=== PATIENT | female | born 1985 | race Caucasian/White ===

== ENCOUNTER → 2023-09-08 09:50 | Outpatient (REF) | payer BC, SELFPAY | LOC: RAD 09:50 | PROVIDERS: ATTENDING PHYSICIAN Physician Assistant Medical | DX: R06.02 Shortness of breath (principal) | CPT/HCPCS: 71046 ==

== ENCOUNTER → 2023-09-10 13:17 | Outpatient (REF) | payer BC, SELFPAY | LOC: MRI 3T 13:17 | PROVIDERS: ATTENDING PHYSICIAN Physician Assistant Medical | DX: G44.52 New daily persistent headache (NDPH) (principal) | CPT/HCPCS: 70551 ==

== ENCOUNTER → 2023-12-30 14:54 | Outpatient (REF) | payer BC, SELFPAY | LOC: RAD 14:54 | PROVIDERS: ATTENDING PHYSICIAN Obstetrics & Gynecology; FAMILY PHYSICIAN Physician Assistant Medical | DX: O26.851 Spotting complicating pregnancy, first trimester (principal) | CPT/HCPCS: 76801; 76817 ==

== ENCOUNTER → 2024-01-09 10:05 | Outpatient (REF) | payer BC, SELFPAY | LOC: PNTC 10:05 | PROVIDERS: ATTENDING PHYSICIAN Obstetrics & Gynecology | DX: O36.80X0 Pregnancy with inconclusive fetal viability, not applicable or unspecified (principal) | CPT/HCPCS: 76801; 76817 ==

== ENCOUNTER → 2024-01-13 13:23 | Outpatient (REF) | payer BC, SELFPAY | LOC: RAD 13:23 | PROVIDERS: ATTENDING PHYSICIAN Obstetrics & Gynecology; FAMILY PHYSICIAN Physician Assistant Medical | DX: O26.859 Spotting complicating pregnancy, unspecified trimester (principal) | CPT/HCPCS: 76801 ==

== ENCOUNTER → 2024-02-06 13:24 | Outpatient (REF) | payer BC, SELFPAY | LOC: RAD 13:24 | PROVIDERS: ATTENDING PHYSICIAN Obstetrics & Gynecology; FAMILY PHYSICIAN Family Medicine | DX: O26.851 Spotting complicating pregnancy, first trimester (principal) | CPT/HCPCS: 76801 ==

== ENCOUNTER → 2024-02-16 10:18 | Outpatient (REF) | payer BC, SELFPAY | LOC: PNTC 10:18 | PROVIDERS: ATTENDING PHYSICIAN Obstetrics & Gynecology | DX: Z36.0 Encounter for antenatal screening for chromosomal anomalies (principal); Z36.82 Encounter for antenatal screening for nuchal translucency | CPT/HCPCS: 76801; 76813 ==

== ENCOUNTER 2024-08-17 15:52 | Inpatient (IN) | payer BC, SELFPAY ==
[2024-08-17 16:21] VITALS: BP 122/57; BMI 30.9
[2024-08-17] MEDS: PITOCIN 30 UNITS/NSS 500 ML IV (17:58)
[2024-08-17] MEDS: LR 1000 IV (17:59)
[2024-08-17 18:03] LABS: % Basophils 0.2 % (0-2); % Eosinophils 0.7 % (0-6); % Immature Granulocytes 0.7 % (0-0.5); % Monocytes 7.5 % (1.7-9.3); % Neutrophils 64.9 % (42.2-75.2); Absolute Eosinophils 0.1 10^3/uL (0-0.7); Absolute Immature Granulocytes 0.1 10^3/uL (0-0.05); Absolute Lymphocytes 2.5 10^3/uL (1.2-3.4); Absolute Monocytes 0.7 10^3/uL (0.1-0.6); Absolute Neutrophils 6.2 10^3/uL (1.4-6.5); Hematocrit 33.7 % (37.0-47.0); Hemoglobin 11.5 g/dL (12.0-16.0); Mean Corp Hgb Conc. 34.1 g/dL (33.0-37.0); Mean Corpuscular Hgb 30.7 pg (27.0-31.0); Mean Corpuscular Volume 90.1 fL (81.0-99.0); Nucleated Red Blood Cells % 0 %; Platelet Count 232 10^3/uL (130-400); Red Blood Cell Count 3.74 10^6/uL (4.20-5.40); Red Cell Dist. Width 12.7 % (11.5-14.5); White Blood Cell Count 9.6 10^3/uL (4.8-10.8)
[2024-08-17] MEDS: FENTANYL/BUPIVACAINE 100 EPIDURAL (20:31)
[2024-08-17] MEDS: SUBLIMAZE 100 MCG EPIDURAL (20:31)
[2024-08-17] MEDS: TUMS CHEWABLE TABLET 400 MG PO (21:27)
[2024-08-17] MEDS: MAALOX 30 ML PO (23:21)
[2024-08-17] MEDS: PEPCID 40 MG PO (23:21)
[2024-08-18] MEDS: MOTRIN 600 MG PO ×3 (05:55→20:43)
[2024-08-18] MEDS: TYLENOL 650 MG PO ×3 (05:55→16:41)
[2024-08-18 06:07] LABS: Hematocrit 30.3 % (37.0-47.0); Hemoglobin 10.6 g/dL (12.0-16.0)
[2024-08-18] MEDS: PRENATAL PLUS 1 TABLET PO (08:02)
[2024-08-18] MEDS: SENOKOT-S 1 TABLET PO (10:22)
[2024-08-19] MEDS: TYLENOL 650 MG PO ×2 (00:50→06:26)
[2024-08-19] MEDS: MOTRIN 600 MG PO (06:25)
[2024-08-19] MEDS: PRENATAL PLUS 1 TABLET PO (08:09)
[2024-08-19] MEDS: SENOKOT-S 1 TABLET PO (08:10)
[2024-08-21 16:06] LABS: Syphilis/T. pallidum Ab Reflex Negative (Negative)
== END 2024-08-19 10:54 | disposition home or self-care (01) | DRG 807 ==
LOC: LDRP 15:52
PROVIDERS: ADMITTING PHYSICIAN Obstetrics & Gynecology; FAMILY PHYSICIAN Family Medicine
PROC: 10E0XZZ Delivery of Products of Conception, External Approach (ICD-10-PCS; 2024-08-17)
DX: O32.6XX0 Maternal care for compound presentation, not applicable or unspecified (principal); Z37.0 Single live birth; O69.82X0 Labor and delivery complicated by other cord entanglement, without compression, not applicable or unspecified; Z3A.39 39 weeks gestation of pregnancy
CPT/HCPCS: 36415; 85014; 85018; 85025; 86780; 86850; 86900; 86901